=== PATIENT | male | born 1980 | race Caucasian/White ===

== ENCOUNTER → 2020-06-17 08:14 | Outpatient (CLI) | payer OTHER, SELFPAY ==
--- NOTE | ~2020-06-17 | MR_ITS ---
EXAMINATION: MR ankle LT wo con DATE: 06/17/2020 09:28 INDICATION: Left foot and ankle pain TECHNIQUE: Magnetic resonance imaging (MRI) of the left ankle was performed without intravenous contr ast. Sequences included sagittal, coronal, and axial proton-density weighted fast spin echo without a nd with fat saturation. COMPARISON: None. FINDINGS: Medial ankle ligaments: Deep and superficial deltoid ligaments as well as the spring ligament are normal. Lateral ankle ligaments: The anterior and posterior inferior tibiofibular ligaments are normal. The anterior talofibular, calc aneofibular and posterior talofibular ligaments are normal. Tendons: Achilles tendon is normal. The peroneus longus and brevis tendons are normal. The tibialis anterior a nd extensor hallucis longus and extensor digitorum longus tendons are normal. The tibialis posterior, flexor digitorum longus and flexor hallucis longus tendons are normal. Plantar fascia: Mild thickening and minimal increased signal of the central component of the plantar aponeurosis cons istent with mild enthesopathy without significant surrounding edema to suggest acute plantar fasciiti s. Bones/other: Bone alignment is normal. No acute fracture or pathologic marrow replacing process. There is mild sub articular edema underlying the medial rim of the talar dome where there is subtle flattening of the a rticular cortex. Joint spaces appear normal. No cortical erosions. Fluid: No joint effusion. Or other abnormal fluid collections. IMPRESSION: 1. Subtle flattening of the articular cortex at the medial rim of the talar dome with mild underlying marrow edema. This could be related to mild osteoarthritis with overlying chondromalacia, chronic castillo barticular fracture or chronic collapse osteochondral lesion. Reviewed, dictated and finalized at location A. R OPERATOR IMPRESSION: 1. Subtle flattening of the articular cortex at the medial rim of the talar dom e with mild underlying marrow edema. This could be related to mild osteoarthrit is with overlying chondromalacia, chronic subarticular fracture or chronic malik apse osteochondral lesion.
--- NOTE | ~2020-06-17 | MR_ITS ---
EXAMINATION: MR knee LT wo con DATE: 06/17/2020 09:28 INDICATION: Left knee pain TECHNIQUE: Magnetic resonance imaging (MRI) of the left knee was performed without intravenous contra st. Sequences included coronal PD-weighted FSE, coronal PD-weighted FS FSE, sagittal T2-weighted FSE , sagittal PD-weighted FS FSE and axial PD weighted fat saturated FSE. COMPARISON: None. FINDINGS: Medial compartment: Medial meniscus is normal. Articular cartilage is normal. Lateral compartment: Lateral meniscus is normal. Articular cartilage is normal. Patellofemoral compartment: Articular cartilage is normal. Ligaments and tendons: Anterior and posterior cruciate ligaments are normal. The medial collateral ligament and fibular malik ateral ligament complex are normal. The extensor mechanism is normal. The visualized medial and later al hamstring tendons as well as the iliotibial band are normal. Fluid: Physiologic amount of fluid in the joint space. No loose osteochondral bodies identified. Osseous/other: There is marrow edema surrounding a mildly comminuted nondisplaced fracture line at the proximal fibu la. This includes a curvilinear fracture line underlying articular surface of the proximal tibiofibul ar joint and a second coronally oriented fracture line extend to the articular surfaces without evide nt fracture gap or incongruity. Marrow signal is otherwise normal. No other fractures or pathologic m arrow replacing process. IMPRESSION: 1. Nondisplaced mildly comminuted intra-articular fracture at the head of the fibula involving the ar ticular surface at the proximal tibiofibular joint. Reviewed, dictated and finalized at location A. LTY HEAD IMPRESSION: 1. Nondisplaced mildly comminuted intra-articular fracture at the head of the f ibula involving the articular surface at the proximal tibiofibular joint.
== END ==
PROVIDERS: PCP Family Medicine; Visit Provider Nurse Practitioner Family
DX: S82.832A Other fracture of upper and lower end of left fibula, initial encounter for closed fracture (principal); X58.XXXA Exposure to other specified factors, initial encounter
CPT/HCPCS: 73721

== ENCOUNTER 2024-12-17 16:46 | Outpatient (CLI) | payer OTHER, SELFPAY ==
--- NOTE | ~2024-12-17 | XR_ITS ---
CHEST RADIOGRAPH, PA AND LATERAL CLINICAL HISTORY: R06.02 - Shortness of breath . COMPARISON: 11/14/2012 TECHNIQUE: PA and lateral views of the chest. FINDINGS The cardiomediastinal silhouette is unremarkable. The lungs are clear. Visualized osseous structures and soft tissues are unremarkable. IMPRESSION: No focal infiltrate or effusion. Reviewed, dictated and finalized at location A.
== END 2024-12-17 16:47 | disposition home or self-care (01) ==
LOC: MICIMG 16:47
PROVIDERS: PCP Family Medicine
DX: R06.02 Shortness of breath (principal)
CPT/HCPCS: 71046